=== PATIENT | female | born 1975 | race Caucasian/White ===

== ENCOUNTER 2016-09-07 12:45 | Emergency (ER) ==
--- NOTE | 2016-09-07 14:01 | PROVIDER DOCUMENTATION ---
HPI-Respiratory General - General Chief Complaint: Cough Stated Complaint: COUGHING,CANT BREATHE Time Seen by Provider: 09/07/16 13:20 Source: patient Allergies/Adverse Reactions: Patient Allergies Allergy/AdvReac Type Severity Reaction Status Date / Time amoxicillin [Amoxicillin] Allergy Severe HIVES Verified 09/07/16 14:50 Penicillins Allergy HIVES Verified 09/07/16 14:50 Home Medications: Gabapentin [Neurontin] 300 mg PO TID 09/17/15 Insulin Aspart Prot/Insuln Asp [Novolog Mix 70-30 Flexpen Syrn] 28 unit PO BID 09/17/15 Lisinopril 10 mg PO DAILY 09/17/15 Furosemide [Lasix] 20 mg PO DAILY 04/02/16 Metformin [Glucophage] 500 mg PO DAILY 04/02/16 - History of Present Illness-Resp Nature of Presenting Problem: 41 y/o WF c/o cough x 1 week. Pt states no fever/chills. Reports no sick contacts. States that vomits with coughing sometimes. Cough is productive of green/white mucus. States sore throat, ear pain. Denies any other sxs at this time. Review of Systems - Adult - REVIEW OF SYSTEMS - ADULT Constitutional: reports: no symptoms reported. denies: chills, fever Eyes: reports: no symptoms reported. denies: blurred vision, double vision Ears, Nose, Mouth & Throat: reports: see HPI, ear pain, throat pain. denies: nose pain Cardiovascular: reports: no symptoms reported. denies: chest pain, palpitations Respiratory: reports: see HPI, cough. denies: shortness of breath Gastrointestinal: reports: see HPI, vomiting. denies: abdominal pain, constipation, diarrhea, nausea Genitourinary: reports: no symptoms reported. denies: dysuria, frequency Musculoskeletal: reports: no symptoms reported. denies: joint pain, joint swelling Integumentary: reports: no symptoms reported. denies: nail changes, rash Neurological: reports: no symptoms reported. denies: numbness, paresthesia Psychiatric: reports: no symptoms reported Endocrine: reports: no symptoms reported. denies: cold intolerance, heat intolerance Hematologic/Lymphatic: reports: no symptoms reported. denies: easy bruising, prolonged bleeding Allergic/Immunologic: reports: no symptoms reported All Other Systems: Reviewed and Negative Past History - Adult - PAST MEDICAL HISTORY-ADULT Review of Records: reports: Nursing Assessment Review, Medications Reviewed Major Childhood Illnesses: reports: denies history Cardiovascular: reports: HTN, hyperlipidemia Respiratory: reports: denies history Gastrointestinal: reports: denies history Obstetrical/Gynecological: reports: denies history Genitourinary: reports: denies history Musculoskeletal: reports: denies history Neurological: reports: denies history Endocrine/Immune: reports: Diabetes Other Conditions: reports: denies history - PRIOR SURGERIES/PROCEDURES Surgical/Procedure History: reports: other (oral) - PRIOR HOSPITALIZATIONS Prior Hospitalizations: reports: none - IMMUNIZATION STATUS Childhood Immunizations: See Nurse Assessment Flu Vaccine: See Nurse Assessment - FAMILY HISTORY Family History: reviewed, not pertinent - SOCIAL HISTORY Smoking: cigarettes, less than 1 pack/day Provider spent 3-5 mins advising pt. on dangers of tobacco.: Discussed manners to quit use, and f/u contacts for add'l counseling. Physical Exam-General - CONSTITUTIONAL General Appearance: alert, mild distress - EYES Eyes: pink conjunctivae - HEAD, EARS, NOSE, MOUTH & THROAT HENMT: normocephalic/atraumatic, moist mucous membranes, pharyngeal erythema. negative: tonsillar exudate - NECK Neck: supple, normal inspection. negative: lymphadenopathy - RESPIRATORY Respiratory: lungs clear, normal breath sounds. negative: crackles, rales, rhonchi, stridor, wheezing - CARDIOVASCULAR Cardiovascular: regular rate, rhythm. negative: bradycardia, tachycardia - GASTROINTESTINAL (ABDOMEN) Abdominal Exam: normal bowel sounds, non tender, soft. negative: distended, guarding, rigid, rebound - MUSCULOSKELETAL Back Exam: no CVA tenderness Extremity: normal gait - SKIN Integumentary: normal color, normal turgor, warm/dry - NEUROLOGIC Neurologic: negative: aphasia - PSYCHIATRIC Psych/Mental Status: normal mood/affect, normal thought content, normal thought process, oriented x 3 Progress - PLAN OF CARE/RESULTS Progress/Plan/Lab Results: Orders Category Date Time Status CHEST-2 VIEWS [RAD] Stat Exams 09/07/16 13:36 Draft Vital Signs Temp Pulse Resp BP Pulse Ox 09/07/16 15:08 87 18 120/64 100 09/07/16 13:16 98.0 F 91 H 18 123/63 100 amoxicillin [Amoxicillin] Allergy (Severe, Verified 09/07/16 14:50) HIVES Penicillins Allergy (Verified 09/07/16 14:50) HIVES Gabapentin [Neurontin] 300 mg PO TID 09/17/15 Insulin Aspart Prot/Insuln Asp [Novolog Mix 70-30 Flexpen Syrn] 28 unit PO BID 09/17/15 Lisinopril 10 mg PO DAILY 09/17/15 Furosemide [Lasix] 20 mg PO DAILY 04/02/16 Metformin [Glucophage] 500 mg PO DAILY 04/02/16 Discussed results and f/u with pt. - XRAY 1 XRAY Study: Chest XRAY Interpretation: No PNA Departure - Departure Time of Disposition Order: 14:05 DIAGNOSIS: URI (upper respiratory infection) Qualifiers: URI type: unspecified URI Qualified Code(s): J06.9 - Acute upper respiratory infection, unspecified Disposition: HOME 01 Certified Medical Emergency: Emergent Condition: Stable Additional Instructions: Take medications as directed. Follow up with PCP in 3-5 days for recheck. Tylenol for pain/fever. ED Follow Up Instructions: You have been treated by a care provider in the Emergency Department. These instructions are being provided to you so you can have an understanding of how to care for yourself upon discharge. Upon discharge from the Emergency Department, you are responsible for making arrangements for follow-up care by a physician of your choice. Take all prescribed medications as directed. Return to the Emergency Department immediately for any new or worsening symptoms. You may call the Physician Referral phone number at [phone] to obtain a list of Physicians who are taking new patients. Referrals: [Primary Care Provider] - Forms: Return to School/Parent Work Instructions: Upper Respiratory Infection, Adult, [id number] Attestation - Physician/ Mid-level Attestation Patient care was provided by Mid-level provider (DIAL LATHE OPERATOR/PA):: Yes Mid-level provider:: Tonia Crane Mid-level documentation review:: The Mid-level provider documentation, treatment plan and medical decision making was reviewed by the physician who agrees with all treatment and medical decision making by the MLP.
--- NOTE | 2016-09-07 14:37 | Diag Imaging Result Document ---
PROCEDURE NAME: CHEST-2 VIEWS - 09/07/2016 CHEST, TWO VIEWS: INDICATION: Cough. FINDINGS: The heart size is within normal limits. There is borderline prominence of the mediastinum. The pulmonary vasculature is not congested. No acute infiltrates or effusions are identified. IMPRESSION: 1. No acute air space disease. 2. Borderline prominence of the mediastinum.
[2016-09-07 15:10] VITALS: BP 120/64
== END 2016-09-07 15:08 | disposition home or self-care (01) ==
LOC: ED 12:45
DX: J06.9 Acute upper respiratory infection, unspecified (principal); R05 Cough; R11.10 Vomiting, unspecified; R09.3 Abnormal sputum; J02.9 Acute pharyngitis, unspecified; H92.09 Otalgia, unspecified ear; I10 Essential (primary) hypertension; E78.5 Hyperlipidemia, unspecified; E11.9 Type 2 diabetes mellitus without complications; F17.210 Nicotine dependence, cigarettes, uncomplicated; Z79.4 Long term (current) use of insulin; Z79.899 Other long term (current) drug therapy; Z71.6 Tobacco abuse counseling
CPT/HCPCS: 71020; 99283